=== PATIENT | female | born 1960 | race African-American/Black ===

== ENCOUNTER 2024-04-04 14:04 | Inpatient (IN) | payer OTHER, MEDICAID ==
[~2024-04-04] VITALS: Ht 154.9 cm; Wt 44.5 kg
[2024-04-04 14:09] VITALS: BP_SYST 98; PULSE 78; RESP 22; TEMP 98.3; O2SAT 96
[2024-04-04] MEDS ORDERED: INSU100V7 SUBCUT (14:28)
[2024-04-04] MEDS ORDERED: SPIR25TA PO (14:28)
[2024-04-04] MEDS ORDERED: ASPI-862 PO (14:28)
[2024-04-04] MEDS ORDERED: NIFE90TA24 PO (14:28)
[2024-04-04] MEDS ORDERED: QUET50TA PO (14:28)
[2024-04-04] MEDS ORDERED: RISP3TAB5 PO (14:28)
[2024-04-04] MEDS ORDERED: ACET325T PO (14:28)
[2024-04-04] MEDS ORDERED: METO-442 PO (14:28)
[2024-04-04] MEDS ORDERED: LISI20TA30 PO (14:28)
[2024-04-04] MEDS ORDERED: LEVE1000 PO (14:28)
[2024-04-04] MEDS ORDERED: HYDR-3917 PO (14:28)
[2024-04-04] MEDS ORDERED: NITR0.4T47 SL (14:28)
[2024-04-04] MEDS ORDERED: ZINC100T2 PO (14:28)
[2024-04-04] MEDS ORDERED: ASCO500T20 PO (14:28)
[2024-04-04] MEDS ORDERED: LIP40 PO (14:28)
[2024-04-04] MEDS ORDERED: HYDR50TA44 PO (14:28)
[2024-04-04] MEDS ORDERED: MULT-1089 PO (14:28)
[2024-04-04] MEDS ORDERED: ACETAMINOPHEN 325 MG TABLET PO PRN ×2 (15:15→17:15)
[2024-04-04] MEDS ORDERED: MORPHINE 2 MG/ML INJ. SYRINGE IVP PRN ×2 (15:15)
[2024-04-04] MEDS ORDERED: MAGNESIUM SULFATE 50 ML IV PRN (15:15)
[2024-04-04] MEDS ORDERED: ZOLPIDEM TARTRATE 5 MG TABLET PO PRN (15:15)
[2024-04-04] MEDS ORDERED: DOCUSATE SODIUM 100 MG CAPSULE PO PRN (15:15)
[2024-04-04] MEDS ORDERED: ONDANSETRON HCL 4 MG/2 ML VIAL IVP PRN (15:15)
[2024-04-04] MEDS ORDERED: POTASSIUM CHLORIDE 20 MEQ TABLET.ER PO PRN (15:15)
[2024-04-04] MEDS ORDERED: LORazepam 2 MG/ML VIAL IVP PRN (15:15)
[2024-04-04] MEDS: NACL 0.9% 1,000 ML IV SCH (15:15)
[2024-04-04] MEDS ORDERED: MUPIROCIN 2% TOPICAL OINTMENT 22 GM NS PRN (15:15)
[2024-04-04] MEDS: NACL 0.9% 1,000 ML IV ONE (15:24)
[2024-04-04] MEDS ORDERED: INSULIN LISPRO SLIDING SCALE 100 UNITS/ML, 3 ML VIAL (humaLOG) SUBCUT PRN (15:30)
[2024-04-04 15:53] LABS: HEMATOCRIT 32.9 % (36-48); HEMOGLOBIN 11.5 g/dL (12.0-16.0); MEAN CORPUSCULAR HEMOGLOBIN 31 pg (27-31); MEAN CORPUSCULAR HGB CONC 35 % (32-36); MEAN CORPUSCULAR VOLUME 88 fL (79.0-98.0); PLATELET COUNT (AUTO) 277 K/uL (130-430); RED BLOOD CELL COUNT(AUTO) 3.73 MIL/uL (4.2-6.2); RED CELL DISTRIBUTION WIDTH 16.6 % (9.0-15.0); WHITE BLOOD COUNT (AUTO) 13.3 K/uL (4.8-10.8)
[2024-04-04 16:07] LABS: PROTHROMBIN TIME 10.3 SECS (9.5-12.5)
[2024-04-04 16:11] LABS: ALANINE AMINOTRANSFERASE 23 U/L (12-78); ALBUMIN 1.8 g/dL (3.4-4.8); ANION GAP 5 (5-15); ASPARTATE AMINOTRANSFERASE 22 U/L (10-37); CARBON DIOXIDE 30 mmol/L (23-29); CHLORIDE 98 mmol/L (98-107); CREATININE 0.75 mg/dL (0.55-1.30); GFR AFRICAN AMERICAN 101 mL/min (>90); GFR NON AFRICAN-AMERICAN 83 mL/min (>90); GLUCOSE 136 mg/dL (74-106); POTASSIUM 5.1 mmol/L (3.5-5.1); SODIUM SERUM 133 mmol/L (136-145); TOTAL BILIRUBIN 0.2 mg/dL (0.0-1.0); TOTAL PROTEIN, SERUM 5.9 g/dL (6.4-8.3); UREA NITROGEN, BLOOD 78 mg/dL (8-21)
[2024-04-04 16:13] LABS: BILIRUBIN,DIRECT 0.1 mg/dL (0.0-0.3); CREATINE KINASE, TOTAL 20 U/L (26-192); LACTATE DEHYDROGENASE 222 U/L (81-234)
[2024-04-04 16:14] LABS: BAND % (MANUAL) 5 % (0-6); BASOPHILS % (MANUAL) 0 % (0-2); EOSINOPHILS % (MANUAL) 0 % (0-7); LYMPHOCYTES % (MANUAL) 3 % (20-46); METAMYELOCYTES % 6 % (0-0); MONOCYTES % (MANUAL) 6 % (0-11); MYELOCYTES % 1 % (0-0)
[2024-04-04 16:15] LABS: ANISOCYTOSIS 1+; PLATELET ESTIMATE ADEQUATE (ADEQUATE)
[2024-04-04 16:15] LABS: BILIRUBIN,URINE NEGATIVE (NEGATIVE); BLOOD, URINE 1+ (NEGATIVE); CLARITY/URINE CLEAR (CLEAR); COLOR,URINE YELLOW (YELLOW); GLUCOSE,URINE NEGATIVE (NEGATIVE); KETONES,URINE NEGATIVE (NEGATIVE); LEUKOCYTE ESTERASE ,URINE 1+ (NEGATIVE); NITRITE, URINE NEGATIVE (NEGATIVE); PROTEIN URINE NEGATIVE (NEGATIVE); UROBILINOGEN,URINE 0.2 (0.2-1.0)
[2024-04-04 16:23] LABS: BACTERIA,URINE FEW /HPF (None Seen)
[2024-04-04 16:24] LABS: MUCUS,URINE None Seen /LPF (None Seen)
[2024-04-04 17:54] VITALS: BP_SYST 136; PULSE 76; RESP 16; TEMP 98.6; O2SAT 97
[2024-04-04 18:03] VITALS: BP_SYST 136; PULSE 72; RESP 16; TEMP 98.6; O2SAT 97
[2024-04-04 20:30] VITALS: BP_SYST 150; PULSE 77; RESP 16; TEMP 98.2; O2SAT 94
[2024-04-04] MEDS: levETIRAcetam 500 MG TABLET PO SCH (22:47)
[2024-04-04] MEDS: risperiDONE 1 MG TABLET (RisperDAL) PO SCH (22:47)
[2024-04-04] MEDS: QUEtiapine FUMARATE 25 MG TABLET PO SCH (22:47)
[2024-04-04] MEDS: metroNIDAZOLE 500 mg/NS 100 ML IV SCH (22:49)
[2024-04-04] MEDS: HEPARIN SODIUM,PORCINE 5,000 UNITS/ML VIAL SUBCUT SCH (22:50)
[2024-04-04] MEDS: metroNIDAZOLE 500 mg/NS 200 ML IV ONE (22:58)
[2024-04-05 00:30] VITALS: BP_SYST 158; PULSE 82; RESP 16; TEMP 98; O2SAT 96
[2024-04-05 04:05] VITALS: BP_SYST 140; PULSE 88; RESP 16; TEMP 100.1; O2SAT 93
[2024-04-05 05:31] LABS: BASOPHILS # (AUTO) 0.1 K/uL (0.0-0.2); BASOPHILS % (AUTO) 0.5 % (0.0-2.0); EOSINOPHILS # (AUTO) 0.2 K/uL (0.0-0.4); EOSINOPHILS % (AUTO) 1.3 % (0.0-4.0); HEMATOCRIT 32.3 % (36-48); HEMOGLOBIN 11.1 g/dL (12.0-16.0); LYMPHOCYTES # (AUTO) 1.5 K/uL (1.0-5.5); LYMPHOCYTES % (AUTO) 13.2 % (20.5-51.5); MEAN CORPUSCULAR HEMOGLOBIN 31 pg (27-31); MEAN CORPUSCULAR HGB CONC 34 % (32-36); MEAN CORPUSCULAR VOLUME 89 fL (79.0-98.0); MONOCYTES # (AUTO) 0.8 K/uL (0.0-1.0); MONOCYTES % (AUTO) 7.4 % (1.7-9.3); NEUTROPHILS # (AUTO) 8.9 K/uL (1.8-7.7); NEUTROPHILS % (AUTO) 77.6 % (40.0-70.0); PLATELET COUNT (AUTO) 301 K/uL (130-430); RED BLOOD CELL COUNT(AUTO) 3.63 MIL/uL (4.2-6.2); RED CELL DISTRIBUTION WIDTH 16.7 % (9.0-15.0); WHITE BLOOD COUNT (AUTO) 11.5 K/uL (4.8-10.8)
[2024-04-05] MEDS: ACETAMINOPHEN 325 MG TABLET PO PRN (05:34)
[2024-04-05 05:58] LABS: CALCIUM 9.2 mg/dL (8.4-11.0); CREATININE 0.62 mg/dL (0.55-1.30)
[2024-04-05 08:00] VITALS: BP_SYST 149; PULSE 82; TEMP 98.4
[2024-04-05] MEDS: cefTRIAXone 1 GM in D5W 50 ML IV SCH (09:06)
[2024-04-05] MEDS: ASCORBIC ACID 500 MG TABLET PO SCH (09:07)
[2024-04-05 10:55] VITALS: BP_SYST 103; PULSE 78; RESP 14; TEMP 98; O2SAT 97
[2024-04-05 16:51] VITALS: BP_SYST 105; PULSE 75; RESP 16; TEMP 98.1; O2SAT 98
[2024-04-05 20:00] VITALS: BP_SYST 159; PULSE 102; RESP 18; TEMP 97.8; O2SAT 95
[2024-04-06] VITALS: BP_SYST 124; BP_SYST 144; PULSE 104; PULSE 92; RESP 18; TEMP 98; TEMP 98.4; O2SAT 96
[2024-04-06 07:55] VITALS: BP_SYST 134; PULSE 111; RESP 20; TEMP 99.2; O2SAT 95
[2024-04-06 07:59] LABS: BASOPHILS # (AUTO) 0.1 K/uL (0.0-0.2); BASOPHILS % (AUTO) 1.4 % (0.0-2.0); EOSINOPHILS # (AUTO) 0.2 K/uL (0.0-0.4); EOSINOPHILS % (AUTO) 1.7 % (0.0-4.0); HEMATOCRIT 33.7 % (36-48); HEMOGLOBIN 11.7 g/dL (12.0-16.0); LYMPHOCYTES # (AUTO) 1.9 K/uL (1.0-5.5); LYMPHOCYTES % (AUTO) 18.5 % (20.5-51.5); MEAN CORPUSCULAR HEMOGLOBIN 31 pg (27-31); MEAN CORPUSCULAR HGB CONC 35 % (32-36); MEAN CORPUSCULAR VOLUME 89 fL (79.0-98.0); NEUTROPHILS # (AUTO) 7.1 K/uL (1.8-7.7); NEUTROPHILS % (AUTO) 68.4 % (40.0-70.0); PLATELET COUNT (AUTO) 308 K/uL (130-430); RED BLOOD CELL COUNT(AUTO) 3.79 MIL/uL (4.2-6.2); RED CELL DISTRIBUTION WIDTH 16.3 % (9.0-15.0); WHITE BLOOD COUNT (AUTO) 10.4 K/uL (4.8-10.8)
[2024-04-06 08:15] LABS: CALCIUM 9.1 mg/dL (8.4-11.0); CREATININE 0.49 mg/dL (0.55-1.30); POTASSIUM 4.3 mmol/L (3.5-5.1)
[2024-04-06] MEDS: ACETAMINOPHEN 325 MG TABLET PO PRN (08:50)
[2024-04-06 10:56] VITALS: BP_SYST 128; PULSE 111; RESP 20; TEMP 97.7; O2SAT 95
[2024-04-06] MEDS ORDERED: SIMETHICONE 80 MG TAB.CHEW GT PRN (11:15)
[2024-04-06] MEDS: METOCLOPRAMIDE HCL 10 MG TABLET GT ONE (12:18)
[2024-04-06 16:00] VITALS: BP_SYST 127; PULSE 98; RESP 18; TEMP 97.9; O2SAT 95
[2024-04-06] MEDS: ACETAMINOPHEN 325 MG TABLET GT PRN (16:57)
[2024-04-06 20:00] VITALS: BP_SYST 128; PULSE 118; RESP 20; TEMP 99; O2SAT 96
[2024-04-06] MEDS: METOCLOPRAMIDE HCL 10 MG TABLET GT SCH (21:40)
[2024-04-07] VITALS: BP_SYST 127; PULSE 100; RESP 17; TEMP 98.9; O2SAT 96
[2024-04-07] MEDS: DEXTROSE 50% JECT 50 ML DISP.SYRIN IVP PRN (03:05)
[2024-04-07] MEDS: D5NS 1,000 ML IV SCH (05:01)
[2024-04-07 07:17] LABS: BASOPHILS # (AUTO) 0.1 K/uL (0.0-0.2); BASOPHILS % (AUTO) 0.8 % (0.0-2.0); EOSINOPHILS # (AUTO) 0.2 K/uL (0.0-0.4); EOSINOPHILS % (AUTO) 1.5 % (0.0-4.0); HEMATOCRIT 35.4 % (36-48); HEMOGLOBIN 11.9 g/dL (12.0-16.0); LYMPHOCYTES % (AUTO) 17.8 % (20.5-51.5); MEAN CORPUSCULAR HEMOGLOBIN 30 pg (27-31); MEAN CORPUSCULAR HGB CONC 34 % (32-36); MEAN CORPUSCULAR VOLUME 90 fL (79.0-98.0); MONOCYTES # (AUTO) 1.1 K/uL (0.0-1.0); MONOCYTES % (AUTO) 10.4 % (1.7-9.3); NEUTROPHILS # (AUTO) 7.7 K/uL (1.8-7.7); NEUTROPHILS % (AUTO) 69.5 % (40.0-70.0); PLATELET COUNT (AUTO) 269 K/uL (130-430); RED BLOOD CELL COUNT(AUTO) 3.95 MIL/uL (4.2-6.2); RED CELL DISTRIBUTION WIDTH 16.5 % (9.0-15.0); WHITE BLOOD COUNT (AUTO) 11.1 K/uL (4.8-10.8)
[2024-04-07 07:20] LABS: CALCIUM 9.2 mg/dL (8.4-11.0); CREATININE 0.57 mg/dL (0.55-1.30); POTASSIUM 3.8 mmol/L (3.5-5.1)
[2024-04-07 08:00] VITALS: BP_SYST 148; PULSE 111; RESP 18; TEMP 98.5; O2SAT 97
[2024-04-07] MEDS: CYANOCOBALAMIN (VITAMIN B-12) 1,000 MCG TABLET PO SCH (09:33)
[2024-04-07] MEDS: FOLIC ACID 1 MG TABLET GT SCH (09:34)
[2024-04-07 11:58] VITALS: BP_SYST 157; PULSE 119; RESP 20; TEMP 97.4; O2SAT 96
[2024-04-07 12:12] VITALS: BP_SYST 120; PULSE 112; RESP 18; TEMP 98.1; O2SAT 97
[2024-04-07] MEDS: metroNIDAZOLE 500 MG TABLET PO SCH (14:00)
[2024-04-07] MEDS: cloNIDine HCL 0.2 MG TABLET PO ONE (14:18)
[2024-04-07] MEDS: METOPROLOL TARTRATE 5 MG/5 ML VIAL IVP PRN (16:00)
== END 2024-04-07 16:20 | DRG 871 ==
LOC: SED 14:04 → SMU 15:13
PROVIDERS: ADMIT General Practice; ATTEND General Practice
DX: A41.9 Sepsis, unspecified organism (principal); E43 Unspecified severe protein-calorie malnutrition; L89.154 Pressure ulcer of sacral region, stage 4; G93.41 Metabolic encephalopathy; J69.0 Pneumonitis due to inhalation of food and vomit; N39.0 Urinary tract infection, site not specified; N17.9 Acute kidney failure, unspecified; Z68.1 Body mass index [BMI] 19.9 or less, adult; G40.909 Epilepsy, unspecified, not intractable, without status epilepticus; D64.9 Anemia, unspecified; R13.10 Dysphagia, unspecified; Z79.1 Long term (current) use of non-steroidal anti-inflammatories (NSAID); Z74.01 Bed confinement status; Z79.899 Other long term (current) drug therapy
CPT/HCPCS: 36415; 71045; 80048; 80076; 81000; 81001; 81015; 82550; 82948; 83037; 83605; 83615; 83735; 84484; 85007; 85025; 85027; 85610; 85730; 87040; 87081; 87086; 93005; 96360; 99285; J0696; J1644; J3490; J7060; J8597